=== PATIENT | female | born 1960 | race Two or more races ===

== ENCOUNTER 2023-07-12 05:50 | Day surgery (SDC) | payer OTHER ==
[2023-07-04 12:54] LABS: PH,URINE 6.5 (5.0-8.0); URINE APPEARANCE Clear; URINE BILIRRUBIN Negative (NEGATIVE); URINE BLOOD Negative; URINE COLOR Yellow; URINE GLUCOSE Negative (NEGATIVE); URINE LEUKOCYTE Negative; URINE NITRATE Negative; URINE PROTEIN Negative (NEGATIVE)
[2023-07-04 12:55] LABS: HEMATOCRIT 38.9 % (36.0-45.00); HEMOGLOBIN 12.8 g/dL (12.0-15.00); MEAN CELL VOLUME 90.4 fL (80.00-100.00); MEAN CORPUSCULAR HEMOGLOBIN 29.8 pg (27.00-32.0); PLATELET COUNT 276 K/uL (150-450); RED CELL DISTRIBUTION WIDTH 13.3 % (11.5-14.5); URINE BACTERIA 26.4 uL (0.0-1933); URINE EPITHELIAL CELLS 2.3 uL (0.0-38.8); URINE WBC 6.4 uL (0.0-23.2)
[2023-07-04 13:07] LABS: URINE RBC 1.5 uL (0.0-20.8)
[2023-07-04 13:50] LABS: INR 0.99; PROTHROMBIN TIME 10.4 SECONDS (9.0-11.5)
[2023-07-04 13:58] LABS: BILIRUBIN TOTAL 0.94 mg/dL (0.3-1.2); CALCIUM 10.4 mg/dL (8.5-10.1); CREATININE SERUM 0.66 mg/dL (0.55-1.02); GFR 90.75; GLOBULINA 3.7 G/DL (2.4-3.5); POTASSIUM 4.96 mEq/L (3.5-5.1); T4 FREE 1.33 NG/ML (0.76-1.46); TOTAL PROTEIN 7.7 gm/dL (6.4-8.2)
[2023-07-04 14:08] LABS: TSH 0.252 uIU/mL (0.358-3.74)
[~2023-07-12 05:50] MED LIST: ADULT LOW DOSE81 M1 PO; JENTADUETO 2.51 EAC2 PO; PEPCID AC20 MG PO; SIMVAST PO; VASOF PO; ZESTRIL10 M1 PO
[2023-07-12] MEDS ORDERED: PERCOCET 5-3251 EACH PO (13:28)
== END 2023-07-12 16:20 | disposition home or self-care (01) ==
LOC: CIR.AMB 05:50
PROVIDERS: ATTEND Surgery
DX: D35.1 Benign neoplasm of parathyroid gland (principal); E21.0 Primary hyperparathyroidism; K76.0 Fatty (change of) liver, not elsewhere classified; Z20.822 Contact with and (suspected) exposure to COVID-19